=== PATIENT | male | born 1955 | race Caucasian/White ===

== ENCOUNTER 2017-07-09 09:23 | Observation (INO) | payer OTHER ==
--- NOTE | 2017-07-09 09:40 | CPEKG ---
Heart Rate: 75 RR Interval: 800 P-R Interval: 240 QRSD Interval: 168 QT Interval: 440 QTC Interval: 492 P [place]: -10 QRS [place]: -15 T Wave [place]: 172 EKG Severity - ABNORMAL ECG - EKG Impression: SINUS RHYTHM EKG Impression: FIRST DEGREE AV BLOCK EKG Impression: LEFT BUNDLE BRANCH BLOCK Electronically Signed By: Nneka Russell 10-Jul-2017 09:26:18
--- NOTE | 2017-07-09 09:57 | EDPHY ---
H & P Stated Complaint: ?facial drooping yesterday;sent here for eval;balance problems x "months" HPI/ROS: CHIEF COMPLAINT: Off balance for 6 months, facial droop yesterday HISTORY OF PRESENT ILLNESS: The patient is a 61 y/o male arriving for evaluation of intermittent facial droop and difficulty balancing for the last 6 months. He has a medical history that includes ankylosing spondylitis, pre- diabetes, and an aortic valve replacement. He's felt increasingly fatigued for the last several months with associated "equilibrium problems," slurred speech, and stumbling. He was referred for physical therapy due to problems with balance and has seen a physical therapist at least 3 times for this. He attributes his symptoms to his cardiac medications. His daughter noticed he had a facial droop last night and in pictures from the previous weeks, but he does not know which side was affected and says it has improved today. He notes he dropped his cell phone from his left hand while walking into the hospital today. He initially presented in the cardiology office and was referred to the ED for head imaging today. He denies headache, vision changes, difficulty swallowing, unilateral weakness or numbness, recent illness, or recent head trauma. He does have baseline bilateral feet tingling that he thinks is worse. He does have a somewhat difficult time recounting details during assessment, limiting history. REVIEW OF SYSTEMS: A ten point review of systems was performed and is negative with the exception of the items mentioned in the HPI. Past medical history: Right hand dominant 1. LBBB 2. Hypertension 3. Ankylosing spondylitis and arthritis 4. Pre-diabetic Past surgical history: 1. Bovine aortic valve replacement 2. Left shoulder repair Family history: Noncontributory Social history: . Nonsmoker. Son at bedside. Drinks wine 3 times weekly. He owns a [employer] business. PCP: Michele Jeffrey. Parts Sales Representative: Dr. Johanna Morrow General Appearance: Alert. Vital signs reviewed. Blood pressure 155/82 at triage. Eyes: Pupils equal and round, no conjunctival injection, no discharge. Anicteric. ENT, Mouth: Mucous membranes are moist, no oropharyngeal erythema or edema. Neck: No lymphadenopathy, supple. Respiratory: Lungs are clear to auscultation; no wheezes, rales, or rhonchi. Cardiovascular: Regular rate and rhythm; no murmur, rub, or gallop. Gastrointestinal: Abdomen is soft and nontender, no masses or organomegaly, bowel sounds normal. Skin: Warm and dry, no rashes on exposed skin, normal color. Back: Nontender to palpation over the thoracolumbar spine. No CVAT. Extremities: No lower extremity edema, no calf tenderness or swelling. Neurological: Alert and oriented. Moving all four extremities easily and equally. Cranial nerves II through XII are examined and are intact (visual acuity not tested) with exception of decreased hearing to finger rub on the left. I do not appreciate a facial droop. Strength is 5 over 5 bilaterally with testing of all major motor groups. Sensation is intact to light touch over all 4 extremities. Deep tendon reflexes are 2+ in the biceps and knees bilaterally. Gait is normal. Aruanl-yv-smnh is performed accurately. No truncal ataxia. Psychiatric: Normal affect. - Personal History Current Tetanus Diphtheria and Acellular Pertussis (TDAP): Yes Tetanus Vaccine Date: 2004 - Medical/Surgical History Hx Asthma: No Hx Chronic Respiratory Disease: No Hx Diabetes: No Hx Cardiac Disease: Yes Hx Renal Disease: No Hx Cirrhosis: No Hx Alcoholism: No Hx HIV/AIDS: No Hx Splenectomy or Spleen Trauma: No Other PMH: htn,spondylitis (reactive arthritis), LBBB, Pneumonia mycoplasma 1981 , pulmonary edema, aortic valve replacement, sleep apnea - Social History Smoking Status: Never smoked Constitutional: Initial Vital Signs Temperature (C) 36.8 C 07/09/17 09:25 Heart Rate 83 07/09/17 09:25 Respiratory Rate 16 07/09/17 09:25 Blood Pressure 155/82 H 07/09/17 09:25 O2 Sat (%) 97 07/09/17 09:25 O2 Delivery Mode Room Air Allergies/Adverse Reactions: Sulfa (Sulfonamide Antibiotics) Allergy (Mild, Verified 07/09/17 09:25) nausea Home Medications: Medication Instructions Recorded Naproxen 500 mg PO BID PRN 11/02/14 Aspirin [Aspirin 81mg (*)] 81 mg PO DAILY 07/09/17 Carvedilol [Coreg (*)] 3.125 mg PO DAILY 07/09/17 Cyanocobalamin [Vitamin B12 (*)] 1,000 mcg PO DAILY 07/09/17 Lisinopril [Zestril 10 mg (*)] 10 mg PO DAILY 07/09/17 Multivitamins [Multivitamin (*)] 1 each PO DAILY 07/09/17 Medical Decision Making - Diagnostics EKG Interpretation: 12 lead EKG is interpreted in Trace master View by emergency department physician. Imaging: Discussed imaging studies w/ faculty i on call medical assistant Radiologist, I viewed and interpreted images myself ED Course/Re-evaluation: The 12 lead EKG was interpreted by myself. Sinus rhythm rate 75. LBBB. Similar to previous EKGs. See hard copy and/or "tracemaster" electronic copy for interpretation. Patient has a normal neurologic exam. I do not appreciate slurred speech or a facial droop. He ambulated in the ugarte with me and had stable gait. CT scan of the brain was reported by Dr. Cortez. No abnormalities noted. I have reviewed the study. 1146: Reevaluated patient and discussed imaging results. He does seem to maybe have a subtle left facial droop at this time. No other neurologic deficits noted and the facial droop, if present, is quite subtle. He showed me some pictures on his telephone, taken within the last 2 weeks, some of which seem to show some flattening of the left nasal labial fold and slight droop at the corners of his mouth on the left. I recommended admission to the hospital for full TIA work up. He is not a candidate for thrombolytics. NIHSS zero. He agrees to admission, but would like me to update his formula mixer as well. I spoke with Saranya Kang, cardiology, to apprise [facility] of his admission. 1205: Spoke with hospitalist service. Dr. Pierce accepts admission. Differential Diagnosis: I considered a differential diagnosis that includes but is not limited to ischemic or hemorrhagic stroke, TIA, Villalpando's palsy, seizure, complex migraine, electrolyte abnormality, brain tumor, and infection. - Data Points Laboratory Results: Laboratory Results 07/09/17 09:47 07/09/17 09:47 Medications Given: Aspirin (Aspirin) 81 mg PO DAILY [facility] Stop: 01/05/18 14:44 Last Admin: 07/10/17 09:20 Dose: 81 mg Carvedilol (Coreg) 3.125 mg PO DAILY [facility] Stop: 01/05/18 14:36 Last Admin: 07/10/17 09:20 Dose: 3.125 mg Sodium Chloride (Ns) 1,000 mls @ 75 mls/hr IV CONT [facility] Stop: 01/05/18 14:44 Last Admin: 07/09/17 15:38 Dose: 1,000 mls Lisinopril (Zestril) 10 mg PO DAILY [facility] Stop: 01/06/18 08:59 Last Admin: 07/10/17 09:20 Dose: 10 mg Multivitamins (Tab-A-Macrina) 1 each PO DAILY [facility] Stop: 01/06/18 08:59 Last Admin: 07/10/17 09:20 Dose: 1 each Vitamin B Complex (Vitamin B12) 1,000 mcg PO DAILY [facility] Stop: 01/06/18 08:59 Last Admin: 07/10/17 09:21 Dose: 1,000 mcg Discontinued Medications Perflutren Lipid Microsphere (Definity) 0 mg IV AD ONE Stop: 07/09/17 15:31 Last Admin: 07/09/17 15:38 Dose: Not Given Departure - Departure Disposition: [facility] In[facility] Acute Clinical Impression: Facial droop TIA (transient ischemic attack) Qualifiers: Transient cerebral ischemia type: other Qualified Code(s): G45.8 - Other transient cerebral ischemic attacks and related syndromes Condition: Fair Report Scribed for: Nneka Russell Report Scribed by: Mattie Lira Date of Report: 07/09/17 Time of Report: 10:37 Physician Review and Approval Statement: 07/09/17 09:58 Portions of this note were transcribed by the medical director occupational health. I, Dr. Nneka Russell, personally performed the history, physical exam, and medical decision- making; and confirmed the accuracy of the information in the transcribed note.
[2017-07-09 10:44] LABS: % IMMATURE GRANULYOCYTES 0.9 % (0.0-1.1); ABSOLUTE IMMATURE GRANULOCYTES 0.07 10^3/uL (0.00-0.10); ADD DIFF? NO; ADD MORPH? NO; ADD SCAN? NO; ATYPICAL LYMPHOCYTE FLAG 10 (0-99); FRAGMENT RBC FLAG 0 (0-99); HEMATOCRIT 45.2 % (40.0-51.0); HEMOGLOBIN 14.8 g/dL (13.7-17.5); LEFT SHIFT FLG 0 (0-99); LIPEMIA HEMOLYSIS FLAG 80 (0-99); MEAN CELL HEMOGLOBIN 28.5 pg (27.9-34.1); MEAN CELL HEMOGLOBIN CONCENTR. 32.7 g/dL (32.4-36.7); MEAN CELL VOLUME 87.1 fL (81.5-99.8); MEAN PLATELET VOLUME 11.7 fL (8.7-11.7); PLATELET CLUMPS FLAG 0 (0-99); PLATELET COUNT 220 10^3/uL (150-400); RED BLOOD CELL COUNT 5.19 10^6/uL (4.40-6.38); RED CELL DISTRIBUTION WIDTH 14.5 % (11.5-15.2)
[2017-07-09 10:53] LABS: ANION GAP 12 mEq/L (8-16); CALCIUM 9.2 mg/dL (8.5-10.4); CARBON DIOXIDE 24 mEq/l (22-31); CHLORIDE 103 mEq/L (97-110); CREATININE 0.7 mg/dL (0.7-1.3); GLOMERULAR FILTRATION RATE > 60; GLUCOSE 124 mg/dL (70-100); POTASSIUM 4.3 mEq/L (3.5-5.2); SODIUM 139 mEq/L (134-144)
[2017-07-09] MEDS ORDERED: ONDANSETRON DISINTEGRATING 4 MG TAB PO PRN (14:32)
[2017-07-09] MEDS ORDERED: ONDANSETRON 4 MG/2 ML VIAL IVP PRN (14:32)
[2017-07-09] MEDS ORDERED: ACETAMINOPHEN 325 MG TAB PO PRN (14:32)
[2017-07-09] MEDS ORDERED: NS 1,000 ML IV SCH (14:45)
--- NOTE | 2017-07-09 15:14 | GHP ---
[f rep st] HISTORY AND PHYSICAL DATE OF ADMISSION: 07/09/2017 CHIEF COMPLAINT: Left facial droop noted last evening, as well as gait imbalances for the past 6 months. HISTORY OF PRESENT ILLNESS: The patient is a 61-year-old male with a history of aortic valve replacement done for aortic insufficiency, left bundle branch block, hypertension, and congestive heart failure, who presented to the emergency room for further evaluation of a left intermittent facial droop. He was at the [employer] last night, and his daughter noticed that he had a slight left facial droop. He describes having "off and on" mini stroke type symptoms. He describes as intermittent feet numbness, as well as a left droop to his face and balance issues. His balance issues have been ongoing for approximately 6 months. He saw a balance therapist. It was inconclusive of the diagnosis. He describes when he walks that he always goes forward and veers to the left. He also says that he has had difficulty with speaking clearly for a long period of time. He notes that he has [address], and this may be affecting this. He has some vision changes with up-close reading. He also describes that his weight has been up 10 pounds over the past 6 months. He has had no difficulty with speaking at this time. Overall, his symptoms seem to have resolved. A head CT was performed in the emergency room, which showed nothing acute. PAST MEDICAL HISTORY: 1. Pneumonia mycoplasma in 1980. 2. History of pulmonary edema. 3. History of congestive heart failure. 4. Aortic insufficiency. 5. Hypertension. 6. Renal insufficiency. 7. Left bundle branch block x12 years. 8. Ankylosing spondylitis. 9. Prediabetes. 10. Recent eye infection treated 3-4 months ago with antibiotics. PAST SURGICAL HISTORY: 1. Aortic valve replacement with a bovine valve in 2014. 2. Left shoulder repair. SOCIAL HISTORY: He is . He does not smoke. He drinks wine approximately 3 nights a week and describes drinking a glass or 2. For a living , he cleans carpets. FAMILY HISTORY: Mother from a complication of an NC at age 87. His father at 62 from complications of lung cancer. ALLERGIES: No known allergies. HOME MEDICATIONS: Naproxen 500 mg b.i.d. p.r.n., multivitamin 1 tab daily, lisinopril 10 mg daily, vitamin B12 1000 mcg daily, Coreg 3.125 mg daily, and aspirin 81 mg daily. REVIEW OF SYSTEMS: A 10-point review of system was performed, was negative, other than pertinent positives in the HPI and past medical history. PHYSICAL EXAM: GENERAL: The patient is a 61-year-old male, who appears to be in no acute distress. VITAL SIGNS: Blood pressure is 134/87. Heart rate is 75. Respiratory rate is 18. O2 saturations on room air are 93%. HEENT: Eyes : Pupils are equal and reactive. EOMs are intact. ENT: Normal ears. Hearing intact. Normal lips. Oral airway intact. NECK: Trachea is midline. CARDIOVASCULAR: He is in a regular rate and rhythm. No murmur, rub or gallop is noted. CHEST/LUNGS: Normal respiratory effort. Clear, without wheezing, rales, or rhonchi. ABDOMEN: Soft, nontender, large and round. SKIN: No rashes or ulcer noted. MUSCULOSKELETAL: Normal gait. Equal in upper/lower extremity strength. NEUROLOGIC: His cranial nerves 2-12 are examined and are intact. Gait is normal. He has no pronator drift. He is able to do heel-to- villalobos equally on both sides. Tongue is midline. He may have a slight left facial droop. PSYCHIATRIC: He is alert and oriented. Normal mood and affect. Normal judgment, insight, and normal memory. DATA REVIEW: Laboratory data shows a white blood cell count of 8.12, hemoglobin 14.8, hematocrit 45.2, platelet count of 220. Chemistry: Sodium is 139, potassium 4.3, CO2 24, BUN 17, creatinine 0.7, glucose of 124, calcium 9.2. EKG, which I evaluated myself, shows a sinus rhythm with a left bundle branch block, with a first-degree AV block. Head CT shows a normal CT of brain without contrast. ASSESSMENT/PLAN: 1. Likely a transient ischemic attack. Will order a CT angiogram of his head and neck. In addition, will get an MRI to rule out a stroke. Will check a lipid panel and a hemoglobin A1c. He is currently normotensive. An echocardiogram will be performed. Neurology has been consulted. He is on a daily aspirin. 2. Left bundle branch block. He appears to be at his baseline. Will be placed on the service delivery director for monitoring. 3. Hypertension. Resumed lisinopril. 4. Aortic valve with replacement. He requested that Cardiology be notified that he is here. He sees Dr. Johanna Morrow in the outpatient setting. Their clinic has been notified. She is not available this weekend. 5. Code status: Full. 6. Length of stay: He will likely require less than a 2-midnight stay. Will make him observation status. 7. Deep vein thrombosis prophylaxis. Will initiate low molecular weight heparin. /[id number]/MODL MTDD
[2017-07-09] MEDS ORDERED: PERFLUTREN LIPID MICROSPHERES 1.1 MG/ML VIAL IV ONE (15:30)
[2017-07-09] MEDS: CARVEDILOL 3.125 MG TAB PO SCH (15:34)
[2017-07-09] MEDS: ASPIRIN 81 MG CHEWABLE TAB PO SCH (15:34)
[2017-07-09] MEDS ORDERED: IOPAMIDOL (ISOVUE 370) 100 ML BTL IV ONE (17:05)
[2017-07-10 02:47] VITALS: RESP 16
[2017-07-10 06:47] LABS: CHOLESTEROL 172 mg/dL (140-220); CHOLESTEROL/HDL RATIO 2.46 RATIO (1.00-4.97); HIGH DENSITY LIPOPROTEIN 70 mg/dL (40-65); LDL/HDL RATIO 1.29 RATIO (1.00-3.64); LOW DENSITY LIPOPROTEIN 90 mg/dL (80-100); NON-HIGH DENSITY LIPOPROTEIN 102 mg/dL (90-129); TRIGLYCERIDE 60 mg/dL (40-150); VERY LOW DENSITY LIPOPROTEINS 12 mg/dL (8-25)
[2017-07-10 07:39] VITALS: BP 140/79; PULSE 69; TEMP 98.2; O2SAT 94
[2017-07-10] MEDS ORDERED: MULTIVITAMINS 1 EACH TAB PO SCH (09:00)
[2017-07-10] MEDS ORDERED: LISINOPRIL 10 MG TAB PO SCH (09:00)
[2017-07-10] MEDS ORDERED: ENOXAPARIN 30 MG/0.3 ML SYR SC SCH (09:00)
[2017-07-10] MEDS ORDERED: CYANO/VITAMIN B12 1000 MCG TAB PO SCH (09:00)
[2017-07-10] MEDS: ASPIRIN 81 MG CHEWABLE TAB PO SCH (09:20)
[2017-07-10] MEDS: CARVEDILOL 3.125 MG TAB PO SCH (09:20)
[2017-07-10] MEDS ORDERED: CLOPIDOGREL BISULFATE 75 MG TAB PO SCH (11:00)
--- NOTE | 2017-07-10 11:08 | ECHO ---
[id number] + + [address] : : [place] [address] : : [phone] + + Adult Echocardiographic Report + ---+ :Name: SUSAN MICHEL Date: 07/09/2017 03:39 PM : : Hospital Admission Number: [id number] Location: 361: :: 1955 Gender: Male : :Age: 61 yrs Race: TRIPP EASTMAN : :Reason For Study: TIA : + ---+ MMode/2D Measurements \T\ Calculations LVIDd: 5.4 cm EDV(Teich): 141.6 ml Ao root diam: 4.0 cm LA dimension: 4.5 cm Normal Measurement Values: + + :LVIDd (3.5-5.7cm) IVSd (0.6-1.1cm) LVPWd (0.6-1.1cm) Aortic Root (2.0-3.7cm)Left Atrium (1.5-4.0cm): :LV Vol(d) (76-115ml) LV Vol(s) (29-48ml) Ejec Fraction (50-65%)PV Ankur (0.6- 1.2m/s) TV Ankur (0.4-1.0m/s) : :MV E Ankur (0.8-1.0m/s)MV A Ankur (0.3-1.0m/s)LVOT Ankur (0.7-1.2m/s) Asc Ao Ankur ( 0.9-1.8m/s) : + + Doppler Measurements \T\ Calculations MV E max ankur: 103.7 cm/sec Ao mean P.0 mmHg MV A max ankur: 93.8 cm/sec Ao V2 mean: 123.6 cm/sec MV E/A: 1.1 Ao V2 VTI: 39.2 cm Left Ventricle The left ventricle is normal in size. There is no thrombus. There is normal left ventricular wall thickness. EF estimate is 50-55%. Septal motion is consistent with conduction abnormality. Right Ventricle The right ventricle is normal in size and function. Atria The left atrial size is normal. Right atrial size is normal. The interatrial septum is intact with no evidence for an atrial septal defect. Mitral Valve The mitral valve is normal in structure and function. There is no evidence of mitral valve prolapse. There is no mitral valve stenosis. There is mild mitral regurgitation. Tricuspid Valve Normal tricuspid valve. Aortic Valve There is a bioprosthetic aortic valve. AV mean PG is 7mmHG. Pulmonic Valve The pulmonic valve is normal in structure and function. Trace pulmonic valvular regurgitation. Great Vessels The aortic root is normal size. Pericardium/Pleural There is no pericardial effusion. Conclusion A complete two-dimensional transthoracic echocardiogram was performed (2D, M-mode, Doppler and color flow Doppler). Definity enhancement was used to eval for EF/thrombus. 0.165 mg. There is no obvious source of embolus identified. If one is highly clinically suspected, then transesophageal echocardiography should be considered. EF estimate is 50-55%. Septal motion is consistent with conduction abnormality. There is mild mitral regurgitation. There is a normally functioning bioprosthetic aortic valve. Trace pulmonic valvular regurgitation. Final Reading Physician: Lisa Martínez signed on 07/10/2017 11:06 AM Ordering Physician: Mary Ellen Kahn Performed By: Dione Gomez, HANCS
--- NOTE | 2017-07-10 11:42 | GCON ---
[f rep st] CONSULTATION NEUROLOGIC CONSULTATION HISTORY: The patient is a 61-year-old gentleman I am asked to see in neurologic consultation regard ing left facial droop. He says that over the last week or so there has been some variable left faci al weakness. They have taken photographs, and showed me those where there was clearly left lower fa cial weakness relative to the right when he smiles. This often then gets better. Symptoms have con tinued to fluctuate intermittently, and because of seeing that again yesterday he [facility]. There has been no associated change in speech, or vision, or chewing, or swallow ing. No associated left-sided weakness or numbness. They have not noticed any clear-cut triggers f or this. He has had fairly high stress recently, but nothing else more specific. It is not associa keeley with chest pain, or palpitations, or shortness of breath. He has known history of bowel disease with prior valve replacement 2-1/2 years ago. He typically takes aspirin to a variable degree. He was on statin therapy until about a year ago, when he stopped it. He is not having any pain. He d oes not really describe a loss of sensation in the face, but says for many years he has had variable paresthesias or numb sensations in the hands or feet. He has also been on [place] in the past for peripheral vascular disease. He has some known coronary artery disease, he says, from previous cath eterization. During his workup in the hospital, MRI does not show any evidence of stroke. CT angiogram of the he ad and neck do not show any significant stenoses, and echocardiogram results are pending. Laborator y testing shows normal CBC, and electrolytes with an LDL cholesterol of 90. PAST MEDICAL HISTORY: As outlined above, but also mycoplasma pneumonia in 1980, history of pulmonar y edema, congestive heart failure, hypertension, renal insufficiency, left bundle branch block for 1 2 years, ankylosing spondylitis, prediabetic state. Aortic valve replacement with bovine valve 2014 , a left shoulder repair. SOCIAL HISTORY: He is . He does not smoke. He stays relatively active. He has some alcoho l about 3 nights a week. 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 FAMILY HISTORY: Myocardial infarction. Lung cancer in his father. ALLERGIES: No known allergies. CURRENT MEDICATION: Aspirin 81 mg daily, Coreg, lisinopril, multivitamin. He takes naproxen for hi s arthritic pains, but is not on it currently in the hospital. REVIEW OF SYSTEMS: As outlined above, otherwise, unremarkable. PHYSICAL EXAMINATION: VITAL SIGNS: Blood pressure 140/79, pulse of 69, respirations 16, temperatur e 36.8. GENERAL: He is well developed, in no acute distress. NECK: Supple. No bruits or masses. CARDIAC: Regular rate and rhythm. No murmur. NEUROLOGIC: He is awake, alert, and attentive wit h clear, fluent speech. Pupils are 3 mm and reactive. Extraocular movements are intact. Normal fa cial sensation. There is a mild left lower facial droop. Hearing is preserved. Motor exam, normal muscle bulk and tone with 5/5 strength. Sensation is mildly altered in his feet to touch. Hypoact nathalie reflexes throughout. IMPRESSION: The patient has experienced some fluctuating left facial weakness over the last week or so with principal concern for cerebral ischemia. Interestingly, he does not have any large vessel stenoses. He still has the mild abnormality evident on exam, but the MRI is negative. MRIs can rar yue be false negatives for stroke. We talked about this, and I would certainly favor cerebral ische yola as the source over peripheral explanation, given the lack of any involvement of the forehead, an d this pattern being just left lower face does not fit very well for a variation of Villalpando's palsy. Alayna kumar has risk factors for stroke. Even though he has an LDL cholesterol relatively low at 90, we talke d about the potential benefits of statin therapy for secondary stroke prophylaxis in the setting of TIA, and I am recommending he go on Lipitor 10 mg daily, and he agrees. I am also recommending ronnie ng Plavix 75 mg daily to his aspirin regimen, given the fact that he has some coronary disease, and we further what to protect him against stroke and myocardial infarction. A lot of these issues are subtle, and it is hard to know definitively how to protect him best, but after detailed discussions we agree that this is the approach we will undertake for now. I think he can be safely discharged a nd follow up with a traffic signal repairer. Echocardiogram has not yet been read, but we would certainly cont act him if there is anything requiring acute intervention. Total unit time of 75 minutes. /[id number]/MODL
--- NOTE | 2017-07-10 12:22 | GDS ---
[f rep st] DISCHARGE SUMMARY ALL DIAGNOSES: 1. Suspected left-sided transient ischemic attack versus cerebrovascular accident, with mild residu al left facial droop. 2. Chronic left bundle branch block. 3. Hypertension. 4. Aortic valve, status post replacement about 2-1/2 years ago. 5. Mildly low EF of 50% to 55%. HOSPITAL COURSE: A 61-year-old man admitted with left-sided facial weakness. He has been seen by N eurology. Workup for secondary causes of a cerebrovascular accident have been negative including he ad and neck CT angiogram, echocardiogram, telemetry monitoring, which showed no AFib. His LDL was c hecked and is 90. Total cholesterol is 172. Notably, his MRI brain was negative, however, given th e neurologic deficits, suspect that this does likely represent a true transient ischemic attack, blake gillian cerebrovascular accident. Neurology is recommending treating him empirically for this with a lo w-dose Lipitor, addition of Plavix to his previous aspirin therapy. I have given him prescriptions for these medications and discussed this with him. He will follow up soon with Dr. Morrow for ongoing cardiac management. /[id number]/MODL
--- NOTE | 2017-07-10 15:57 | ASDISCHSUM ---
Discharge Information Plan Status:Home with No Needs Medically Cleared to Leave: Discharge Date:07/10/2017 12:28 PM CM D/C Disposition: ADT D/C Disposition:Home, Routine, Self-Care Projected Discharge Date:07/10/2017 12:28 PM Transportation at D/C: Discharge Delay Reason: Follow-Up Date:07/10/2017 12:28 PM Discharge Slot: Final Diagnosis: Placement Information Patient Contact Information Contact Name:TRIXIE Relationship: Address:[address] City:[place] Alternate Phone: [facility]/Zip Code:[place] [address] Email: Financial Information Financial Class:HMO and PPO Plans Primary Plan Desc:[employer] PPO Primary Plan Number:[id number] Secondary Plan Desc: Secondary Plan Number: Assessment Information Intervention Information
[2017-07-11] MEDS ORDERED: ATORVASTATIN CALCIUM 10 MG TAB PO SCH (09:00)
== END 2017-07-10 12:28 | disposition home or self-care (01) ==
LOC: F3N 13:20
PROVIDERS: ADMIT Internal Medicine Pulmonary Disease; ATTEND Student in an Organized Health Care Education/Training Program
DX: R29.810 Facial weakness (principal); I44.7 Left bundle-branch block, unspecified; I10 Essential (primary) hypertension; Z95.3 Presence of xenogenic heart valve; R73.03 Prediabetes
CPT/HCPCS: 70450; 70496; 70498; 70551; 92523; 93005; 97161; 99285; C8929; G0378; J1650; Q9957; Q9967